=== PATIENT | female | born 1935 | race Hispanic/Latino ===

== ENCOUNTER → 2019-04-05 | Outpatient (CLI) | payer OTHER, MEDICARE ==
[~2019-04-05] MED LIST: AEC81 PO; LEVO75TA10 PO; METO-391 PO; PROP10DR4 OP; SIMV40TA59 PO
== END | disposition home or self-care (01) ==
LOC: OIH 15:48
PROVIDERS: ATTEND Family Medicine
DX: M47.815 Spondylosis without myelopathy or radiculopathy, thoracolumbar region (principal); M16.12 Unilateral primary osteoarthritis, left hip; M25.78 Osteophyte, vertebrae
CPT/HCPCS: 72100; 73502